=== PATIENT | female | born 1945 | race Caucasian/White ===

== ENCOUNTER → 2017-10-23 | Outpatient (CLI) | payer MEDICARE ==
[2017-10-23 12:16] LABS: BASO % 0.3 %; BASO ABS # 0.03 K/uL (0-0.2); EOS % 0.4 %; EOS ABS # 0.04 K/uL (0-0.5); HEMATOCRIT 42.8 % (37-47); HEMOGLOBIN 13.8 g/dL (12.0-16.0); IG# 0.08 K/uL (0.00-0.02); LYMPH % 18.6 %; LYMPH ABS # 2.12 K/uL (1.2-3.4); MEAN CELL VOLUME 94.5 fL (80-100); MEAN CORPUSCULAR HEMOGLOBIN 30.5 pg (25-34); MEAN CORPUSCULAR HGB CONC 32.2 g/dl (32-36); MEAN PLATELET VOLUME 9.6 fL (7.4-10.4); MONO % 8.6 %; MONO ABS # 0.98 K/uL (0.11-0.59); NEUT % 71.4 %; NEUT ABS # 8.13 K/uL (1.4-6.5); PLATELET COUNT 351 K/uL (130-400); RED CELL DISTRIBUTION WIDTH CV 14.4 % (11.5-14.5); RED CELL DISTRIBUTION WIDTH SD 49.7 fL (36.4-46.3); WHITE BLOOD COUNT 11.38 K/uL (4.8-10.8)
[2017-10-23 15:58] LABS: ALBUMIN 3.4 gm/dl (3.4-5.0); ALT/SGPT 25 U/L (12-78); AST/SGOT 14 U/L (15-37); BLOOD UREA NITROGEN 11 mg/dl (7-18); CALCIUM 8.8 mg/dl (8.5-10.1); CARBON DIOXIDE 28 mmol/L (21-32); CREATININE 0.59 mg/dl (0.60-1.20); GLUCOSE 90 mg/dl (70-99); POTASSIUM 3.2 mmol/L (3.5-5.1); SODIUM 138 mmol/L (136-145); TOTAL PROTEIN 7.4 gm/dl (6.4-8.2)
[2017-10-23 16:09] LABS: ALKALINE PHOSPHATASE 72 U/L (45-117); CHOLESTEROL 218 mg/dl (0-200); LDL CHOLESTEROL CALCULATED 129 mg/dl
== END | disposition home or self-care (01) ==
LOC: C.LABMFLN 09:41
PROVIDERS: ATTEND Family Medicine
DX: I10 Essential (primary) hypertension (principal); E78.5 Hyperlipidemia, unspecified; M81.0 Age-related osteoporosis without current pathological fracture

== ENCOUNTER → 2017-10-30 | Outpatient (CLI) | payer MEDICARE ==
[2017-10-30 18:19] LABS: ALBUMIN 3.5 gm/dl (3.4-5.0); BLOOD UREA NITROGEN 15 mg/dl (7-18); CALCIUM 9.1 mg/dl (8.5-10.1); CARBON DIOXIDE 30 mmol/L (21-32); CREATININE 0.58 mg/dl (0.60-1.20); GLUCOSE 95 mg/dl (70-99); PHOSPHORUS 3.7 mg/dl (2.5-4.9); POTASSIUM 4.1 mmol/L (3.5-5.1); SODIUM 135 mmol/L (136-145)
== END | disposition home or self-care (01) ==
LOC: C.LABMFLN 12:14
PROVIDERS: ATTEND Family Medicine
DX: E87.6 Hypokalemia (principal)

== ENCOUNTER → 2017-12-25 | Outpatient (CLI) | payer MEDICARE | END | disposition home or self-care (01) | LOC: C.LABMFLN 08:32 | PROVIDERS: ATTEND Family Medicine | DX: E78.5 Hyperlipidemia, unspecified (principal) ==

== ENCOUNTER 2019-11-11 05:49 | Inpatient (IN) ==
--- NOTE | 2019-10-23 15:39 | PAT Medication Instructions ---
Medication Instructions Date of Service October 23, 2019 Home Medications Medication Instructions Recorded potassium chloride 10 mEq 10 meq PO BID #180 tab 08/09/19 tablet,extended release gabapentin 100 mg capsule 100 mg PO TID #90 cap 08/26/19 oseltamivir 75 mg capsule 75 mg PO DAILY #10 cap 10/16/19 calcium carbonate 600 mg calcium (1,500 mg) tablet 600 mg PO QAM zoledronic yrbv-jzagwicd-fxgqb 5 mg/100 mL in mannitol 5 %-water intravenous piggybck 5 mg IV YEARLY potassium chloride 10 mEq tablet,extended release 10 meq PO BID gabapentin 100 mg capsule 100 mg PO TID acetaminophen 500 mg PO Q6H PRN celecoxib [Celebrex] 200 mg PO QAM hydrochlorothiazide 12.5 mg PO QAM lansoprazole [Prevacid 24Hr] 15 mg PO DAILY PRN oseltamivir 75 mg capsule 75 mg PO DAILY rosuvastatin 40 mg PO QPM Continue as directed oseltamivir 75 mg capsule 75 mg PO DAILY zoledronic msxc-bhymimcb-viezh 5 mg/100 mL in mannitol 5 %-water intravenous piggybck 5 mg IV YEARLY ASK your surgeon for instructions celecoxib [Celebrex] 200 mg PO QAM DO NOT take the morning of surgery hydrochlorothiazide 12.5 mg PO QAM potassium chloride 10 mEq tablet,extended release 10 meq PO BID calcium carbonate 600 mg calcium (1,500 mg) tablet 600 mg PO QAM Take morning of surgery With a small sip of water, OTHERWISE NOTHING TO EAT OR DRINK AFTER MIDNIGHT: lansoprazole [Prevacid 24Hr] 15 mg PO DAILY PRN (if needed) gabapentin 100 mg capsule 100 mg PO TID acetaminophen 500 mg PO Q6H PRN (okay to take up to 4 hours prior to surgery if needed) Take evening before surgery rosuvastatin 40 mg PO QPM potassium chloride 10 mEq tablet,extended release 10 meq PO BID gabapentin 100 mg capsule 100 mg PO TID acetaminophen 500 mg PO Q6H PRN (if needed) Other Notes If you have any questions please call us at [phone] or [phone] or [phone] or [phone]
--- NOTE | 2019-10-24 11:25 | Anesthesiology Consultation ---
Date of Service October 24, 2019 Assessment & Plan (1) Encounter for pre-operative examination: Chart Review Chart Review: Acceptable Risk for Surgery and Patient seen in Pre Admission Testing Teaching & Discussion Instructed NPO after midnight before surgery, except medications with 15 cc of water. Medication instructions provided according to the PAT guidelines. History Surgery Operation Date: 11/11/19 07:45 Proposed Procedures p L5-S1 Decompression and Fusion, Spinal Cord Monitoring - Butch Lujan DO Height/Weight Height: 5 ft 5 in Weight: 81.6 kg Allergies Allergy/AdvReac Type Severity Reaction Status Date / Time tramadol [From Ultram] Allergy Feel itchy Verified 10/16/19 11:28 ARTIFICAL SWEETNERS Allergy Unknown COLITIS Uncoded 10/16/19 11:42 Medications Home Medications Medication Instructions Recorded Confirmed Last Taken calcium carbonate 600 mg calcium 600 mg PO QAM tab 03/28/19 10/16/19 Unknown (1,500 mg) tablet zoledronic looa-tfrviqbw-delix 5 5 mg IV YEARLY ml 05/06/19 10/16/19 Unknown mg/100 mL in mannitol 5 %-water intravenous piggybck potassium chloride 10 mEq 10 meq PO BID #180 tab 08/09/19 10/16/19 Unknown tablet,extended release gabapentin 100 mg capsule 100 mg PO TID #90 cap 08/26/19 10/16/19 Unknown acetaminophen 500 mg PO Q6H PRN 10/16/19 10/16/19 Unknown celecoxib [Celebrex] 200 mg PO QAM 10/16/19 10/16/19 Unknown hydrochlorothiazide 12.5 mg PO QAM 10/16/19 10/16/19 Unknown lansoprazole [Prevacid 24Hr] 15 mg PO DAILY PRN 10/16/19 10/16/19 Unknown oseltamivir 75 mg capsule 75 mg PO DAILY #10 cap 10/16/19 Unknown rosuvastatin 40 mg PO QPM 10/16/19 10/16/19 Unknown Past Medical History Medical History (Updated 10/25/19 @ 08:55 by Samuel Samaniego) Brachial neuritis RIGHT ARM NUMBNESS Collagenous colitis Has resolved since discovery of allergy to artificial sweeteners GERD (gastroesophageal reflux disease) Hx of basal cell carcinoma MULTIPLE HX: breast cancer LEFT 2004 - HAD LUMPECTOMY, RADIATION AND CHEMO Hyperlipidemia Hypertension Numbness and tingling of left leg LE weakness and numbness 2/2 spinal stenosis Osteoarthritis Ruptured lumbar disc Exercise / Class Metabolic Activity II 4-5 Yardwork/Stairs/Walk up hill (No SOB or CP with 1 FOS but moving slowly and difficult 2/2 leg numbness and weakness) Past Family History Family History Mother Family history of diabetes mellitus Past Surgical History Surgical History History of lumpectomy of left breast Hx of appendectomy Hx of arthroscopy of left knee Hx of arthroscopy of right knee Hx of basal cell carcinoma excision Hx of cervical spine surgery Hx of cholecystectomy Hx of colonoscopy Past Anesthesia History No Hx of Anesthesia Complications and No Family Hx of Anesthesia Complications History of PONV No Hx of PONV and No Hx of Motion Sickness Social History Smoking Status: Former smoker Do You Dip or Chew Tobacco: No Smoking End Date: 1969 Hx Alcohol Use: Yes Alcohol type: wine alcohol intake frequency: a few times a week Hx Substance Use: No Review of Systems Pt denies any recent chest pain, shortness of breath, palpitations, cough, fever or URI. +exposure to influenza via grandson, was put on Tamiflu as preventative measure by PCP Physical Exam Vital Signs BP: 142/83 (pt states this is elevated for her, usualy 130s systolic, PCP is monitoring) P: 80bpm SPO2: 99% RA T: 98.3 F R: 16 ENMT Mouth: no dental restorations, no chipped teeth and no loose teeth Thyromental Distance: > or= 3.5 Finger Breadths (4) Mallampati Class: I Neck normal visual inspection and + limited neck extension (moderately) Respiratory normal respiratory effort Auscultation: lungs clear to auscultation bilaterally (aside from very soft basilar crackles on L side) Cardiovascular Rate/Rhythm: regular rate and regular rhythm Heart Sounds: no murmur Vessels: no carotid bruit Extremities: no edema Testing Laboratory Results 10/24/19 11:44 10/24/19 11:44 PT 11.0 Seconds (9.0-12.0) 10/24/19 11:44 INR 1.0 (0.9-1.1) 10/24/19 11:44 APTT 27.6 Seconds (21.0-31.0) 10/24/19 11:44 Urine Color Yellow 10/24/19 11:44 Urine Appearance Clear (Clear) 10/24/19 11:44 Urine pH 6.5 (4.5-7.5) 10/24/19 11:44 Ur Specific [place] 1.012 (1.000-1.030) 10/24/19 11:44 Urine Protein Negative (Negative) 10/24/19 11:44 Urine Glucose (UA) Negative (Negative) 10/24/19 11:44 Urine Ketones Negative (Negative) 10/24/19 11:44 Urine Nitrite Negative (Negative) 10/24/19 11:44 Ur Leukocyte Esterase Negative (Negative) 10/24/19 11:44 Blood Type O Positive 10/24/19 11:44 Antibody Screen NEGATIVE 10/24/19 11:44 Electrocardiogram Date: 10/24/19 Findings: + NSR @ (81) Chest X-Ray Date: 10/24/19 Findings: + NAD
[2019-10-24 12:04] LABS: Basophils # (auto) 0.03 K/uL (0-0.2); Basophils % (auto) 0.5 %; Eosinophils # (auto) 0.08 K/uL (0-0.5); Eosinophils % (auto) 1.2 %; Hematocrit (blood only) 40.5 % (37-47); Hemoglobin 13.4 g/dL (12.0-16.0); Immature Granulocytes # (auto) 0.01 K/uL (0.00-0.02); Immature Granulocytes % (auto) 0.2 %; Lymphocytes # (auto) 0.89 K/uL (1.2-3.4); Lymphocytes % (auto) 13.7 %; Mean Corpuscular Hemoglobin 30.2 pg (25-34); Mean Corpuscular Hgb Conc 33.1 g/dL (32-36); Mean Corpuscular Volume 91.2 fL (80-100); Mean Platelet Volume 9.8 fL (7.4-10.4); Monocytes # (auto) 0.95 K/uL (0.11-0.59); Monocytes % (auto) 14.6 %; Neutrophils # (auto) 4.55 K/uL (1.4-6.5); Neutrophils % (auto) 69.8 %; Platelet Count 312 K/uL (130-400); RDW Coefficient of Variation 13.7 % (11.5-14.5); RDW Standard Deviation 46.2 fL (36.4-46.3); Red Blood Count 4.44 M/uL (4.2-5.4); White Blood Count 6.51 K/uL (4.8-10.8)
--- NOTE | 2019-10-24 12:05 | XRay Report ---
XR chest Pre-admission PA/Lat CLINICAL HISTORY: 74 years-old Female presenting with preoperative assessment. TECHNIQUE: PA and lateral views of the chest were obtained. COMPARISON: None. FINDINGS: Left axillary surgical clips noted. Cardiomediastinal silhouette normal. Lungs and pleural spaces manda ar. Anterior plate and screw fixation in the cervical spine. Cholecystectomy clips noted. IMPRESSION: 1. No acute cardiopulmonary disease. ACT 112: Negative or not required by law. Electronically signed by: Tal Raymundo M.D. 10/24/2019 12:03 PM
[2019-10-24 12:18] LABS: Appearance Urine Clear (Clear); Bilirubin Urine Negative (Negative); Blood Urine Negative (Negative); Color Urine Yellow; Glucose Urine UA Negative (Negative); Ketones Urine Negative (Negative); Leukocyte Esterase Urine Negative (Negative); Nitrite Urine Negative (Negative); Protein Urine Negative (Negative); Specific Gravity Urine 1.012 (1.000-1.030); Urobilinogen Urine Negative (Negative); pH Urine 6.5 (4.5-7.5)
[2019-10-24 12:22] LABS: Partial Thromboplastin Time 27.6 Seconds (21.0-31.0)
[2019-10-24 12:45] LABS: BUN Creatinine Ratio 14.4 (10-20); Calcium 9.5 mg/dl (8.5-10.1); Creatinine Clr Calc Pharmacy 89.4 ml/min; Est GFR (African American) 105.5; Est GFR (Non-African American) 91.1
--- NOTE | 2019-10-24 17:03 | Electrocardiogram Report ---
Test Reason : Blood Pressure : / mmHG Vent. Rate : 081 BPM Atrial Rate : 081 BPM P-R Int : 162 ms QRS Dur : 090 ms QT Int : 384 ms P-R-T Axes : 055 022 041 degrees QTc Int : 446 ms Normal sinus rhythm Normal ECG No previous ECGs available Confirmed by Alec Rausch ([id number]) on 10/24/2019 5:03:17 PM Referred By: Butch Lujan Confirmed By:Alec Rausch
[2019-11-11] MEDS ORDERED: GABAPENTIN 300 MG CAP PO SCH (06:00)
[2019-11-11] MEDS ORDERED: ACETAMINOPHEN 500 MG TAB PO SCH (06:00)
[2019-11-11] MEDS ORDERED: CeleBREX 200 MG CAP PO SCH (06:00)
[2019-11-11] MEDS ORDERED: CEFAZOLIN 2000MG 2,000 MG/15 ML SYR IV SCH (06:00)
[2019-11-11] MEDS ORDERED: LR 15ML/HR IV SCH (06:00)
[2019-11-11] MEDS ORDERED: HYDROmorphone INJ 2 MG/ML SYR/VIAL ONE (06:56)
[2019-11-11] MEDS ORDERED: MIDAZOLAM HCL 1 MG/ML 2ML VIAL ONE (06:56)
[2019-11-11] MEDS ORDERED: fentaNYL citrate 100 MCG/2 ML VIAL ONE (07:07)
[2019-11-11] MEDS ORDERED: BACITRACIN INJ 50,000 UNIT VIAL ONE (07:12)
[2019-11-11] MEDS ORDERED: BUPIVACAINE/EPINEPHRINE 0.5% MPF 1:200,000 10 ML VIAL ONE (07:12)
[2019-11-11] MEDS ORDERED: ONDANSETRON INJ 2 MG/ML 2 ML VIAL IV PRN (07:18)
[2019-11-11] MEDS ORDERED: ATROPINE SULFATE 0.1 MG/ML 10ML SYR IV PRN (07:18)
[2019-11-11] MEDS ORDERED: HYDROmorphone INJ 1 MG/ML SYRINGE IV PRN ×2 (07:18→10:48)
[2019-11-11] MEDS ORDERED: ePHEDrine sulfate 50 MG/ML AMP IV PRN (07:18)
--- NOTE | 2019-11-11 07:38 | History & Physical Bridge Note ---
Date of Service November 11, 2019 History & Physical Bridge Note I have examined the patient, reviewed the History & Physical and in the interval since the performance of the History & Physical I have noted the following changes of clinical significance: no changes noted
--- NOTE | 2019-11-11 07:39 | History & Physical Report ---
Date of Service November 11, 2019 Assessment & Plan (1) Neurogenic claudication due to lumbar spinal stenosis: L5-S1 decompression fusion Present on Admission?: Yes History of Present Illness Chief Complaint: Back and bilateral leg pain and weakness Primary Care Provider: Shobha Martin MD This is a 74-year-old female that has worsening back pain leg pain and leg weakness that has been progressive in nature and is here for urgent decompression fusion. Allergies Allergy/AdvReac Type Severity Reaction Status Date / Time tramadol [From [facility]] Allergy Feel itchy Verified 10/28/19 12:33 [employer] SWE[employer]NERS Allergy Unknown COLITIS Uncoded 10/28/19 12:33 Home Medications Home Medications Medication Instructions Recorded Confirmed Type calcium carbonate 600 mg calcium 600 mg PO QAM tab 03/28/19 11/11/19 History (1,500 mg) tablet zoledronic phwx-vfpvqhaz-vlmox 5 5 mg IV YEARLY ml 05/06/19 11/11/19 History mg/100 mL in mannitol 5 %-water intravenous piggybck potassium chloride 10 mEq 10 meq PO BID #180 tab 08/09/19 11/11/19 Rx tablet,extended release acetaminophen 500 mg PO Q6H PRN 10/16/19 11/11/19 History hydrochlorothiazide 12.5 mg PO QAM 10/16/19 11/11/19 History lansoprazole [Prevacid 24Hr] 15 mg PO DAILY PRN 10/16/19 11/11/19 History rosuvastatin 40 mg PO QPM 10/16/19 11/11/19 History Past Med/Surg History Family History Mother Family history of diabetes mellitus Social History Preferred Language: Swedish Communication Ability: Effective Beliefs That Will Affect Care: None Current Living Situation: Spouse Feels Safe at Home: Yes Safety Concerns: Feels Safe At This Time Smoking Status: Former smoker Do You Dip or Chew Tobacco: No ; Smoking End Date: 1969 ; Second Hand Exposure: No ; Hx Alcohol Use: Yes Alcohol type: wine Hx Substance Use: No Physical Exam Physical Exam: Patient is alert and oriented neurologically intact. Results & Data Vital Signs (Past 12 Hours) Vital Signs Temp Pulse Resp BP Pulse Ox 11/11/19 06:34 36.8 C 99 H 18 179/87 H 100
[2019-11-11] MEDS ORDERED: LIDOCAINE HCL 2% 2 ML VIAL/AMP(20MG/ML) INFIL ONE (08:15)
[2019-11-11] MEDS ORDERED: NEOSTIGMINE METHYLSULFATE 5 MG/5 ML SYR ONE (08:15)
[2019-11-11] MEDS ORDERED: GLYCOPYRROLATE 0.2 MG/ML VIAL ONE (08:15)
[2019-11-11] MEDS ORDERED: PROPOFOL IV EMULSION 10 MG/ML 20 ML VIAL IV ONE (08:15)
[2019-11-11] MEDS ORDERED: DEXAMETHASONE SOD INJ 4 MG/ML VIAL ONE (08:15)
[2019-11-11] MEDS ORDERED: ROCURONIUM BROMIDE 10 MG/ML 5 ML VIAL ONE (08:15)
[2019-11-11] MEDS ORDERED: ONDANSETRON INJ 2 MG/ML 2 ML VIAL ONE (08:15)
[2019-11-11] MEDS ORDERED: LARYING-O-JET KIT (LTA) ONE (08:39)
[2019-11-11] MEDS ORDERED: FLOSEAL HEMOSTATIC MATRIX 10ML TOP ONE (08:46)
--- NOTE | 2019-11-11 09:18 | Operative Report ---
Post Operative Report Pre & Post Diagnosis Operation Date: 11/11/19 07:45 Pre-Op Diagnosis: Lumbar spinal stenosis with neurogenic claudication. Spondylolisthesis L5-S1 Post-Op Diagnosis: Same I identified the patient and participated in the time-out.: Yes Procedure Operation Date: 11/11/19 07:45 Actual Procedures #1 lumbar decompression with bilateral medial facetectomies and foraminotomies L4-5 and L5-S1 per #2 posterior spinal fusion L5-S1. #3 placement posterior instrumentation from July #4 interbody fusion L4 S1. #5 placed a peek cage 10 x 22 mm of 5 number #6 placement locally harvested morselized autograft in the posterior lateral gutters per #7 placement infuse collagen sponge, master graft in the posterior gutters and ostial amp interbody space. Surgeon Butch Lujan DO Clipper Machine Operator Eden Sales Estimated Blood Loss 50 Findings Consistent with Post-Op Diagnosis Specimens None Indications This is a 74--year-old female who presents with marked decline in status with bilateral leg pain and weakness and inability to ambulate subsequently elected to undergo urgent decompression fusion. Description of Procedure Patient was met with preop the case discussed all questions were addressed with the patient was taken back to the operative suite underwent an patient placed in the prone position Ra table on top Hermilo frame. This point the lumbar spine was prepped and draped sterile fashion. Sharp dissection with the assistance of Bovie cautery was performed down to and exposing the lamina and transverse processes of L5 and sacral ala bilaterally. Obvious bilateral pars defect identified. Complete laminectomy of L5 partial laminectomy performed was then performed including bilateral medial facetectomies and foraminotomies addressing severe spinal stenosis. Pedicle screws were then placed in L5 and S1 levels bilaterally with assistance of fluoroscopy and appropriate sized willian placed. By way of a transforaminal approach on the left complete discectomy of L5-S1 was performed endplates curetted to subcortical being bone and a 10 x 22 mm peek cage filled with osteo-bone graft tapped in position. The rods were then compressed locked in final position bilaterally. The transverse processes of L5 and sacral ala burred to subcortical bleeding bone. Infuse collagen sponge master graft local autograft placed in the posterior lateral gutters. 15 round NELSON drain inserted. The incision was then closed with 1 Vicryl in the fascia 2-0 Vicryl subcutaneously and 4 Monocryl for final skin closure. Steri- Strip sterile dressings placed. Patient awakened taken to PACU stable condition. Please note spinal cord monitoring was utilized that the procedure no changes noted. Lastly Eden Sales was present at the entire procedure involved the patient positioning complex portions of the surgery and final skin closure. I attest to the content of the Intraoperative Record and any orders documented therein. Any exceptions are noted below.
--- NOTE | 2019-11-11 09:26 | Fluoroscopy Report ---
FL lumbar spine 2-3V CLINICAL HISTORY: L5-S1 DECOMP/FUSION COMPARISON STUDY: None. FLUOROSCOPY TIME: 15 seconds. FLUOROSCOPIC IMAGES: 2. FINDINGS: These images demonstrate an L5-S1 discectomies and interbody spacer placement. Posterior de compression is noted. There are bilateral pedicle screws at the L5 and S1 levels. The hardware is int act. There are no unexpected radiopaque foreign bodies. IMPRESSION: Fluoroscopy provided for L5-S1 discectomy, decompression and posterior fusion. ACT 112: Negative or not required by law. Electronically signed by: Manjit Verduzco M.D. 11/11/2019 9:25 AM
[2019-11-11] MEDS: fentaNYL citrate 100 MCG/2 ML VIAL IV PRN ×4 (09:38→10:00)
--- NOTE | 2019-11-11 10:41 | Anesthesiology Progress Note ---
Date of Service November 11, 2019 Anesthesia Post Procedure Vital Signs Vital Signs: Temp Pulse Pulse Resp BP Pulse Ox 11/11/19 10:20 98.6 F 64 16 123/68 98 11/11/19 10:10 98.6 F 72 22 128/63 100 11/11/19 10:00 68 11 L 127/61 100 11/11/19 09:50 72 18 135/65 100 11/11/19 09:40 97.5 F L 90 26 H 145/90 H 100 11/11/19 09:31 97.5 F L 92 H 16 192/70 H 100 11/11/19 06:34 98.2 F 99 H 18 179/87 H 100 Pain Intensity Lower Back: Pain Intensity: 3 Transfer of Care Handoff Completed per policy Notes Mental Status: alert / awake / arousable and participated in evaluation Patient Amnestic to Procedure: Yes Nausea / Vomiting: adequately controlled Pain: adequately controlled Airway Patency, RR, SpO2: stable & adequate BP & HR: stable & adequate Hydration State: stable & adequate Anesthetic Complications: no major complications apparent and Pt Satisfied with anesthetic care
[2019-11-11] MEDS ORDERED: ZOLEDRONIC ACID 5 MG/100 ML VIAL IV SCH (10:48)
[2019-11-11] MEDS ORDERED: NALOXONE HCL 0.4 MG/1 ML VIAL/CARP IV PRN (10:48)
[2019-11-11] MEDS ORDERED: FAMOTIDINE 20 MG TAB PO PRN (10:48)
[2019-11-11] MEDS ORDERED: LORazepam 0.5 MG TAB PO PRN (10:48)
[2019-11-11] MEDS ORDERED: SOD PHOSPHATE/SOD BIPHOSPHATE ENEMA 132 ML BTL PR PRN (10:48)
[2019-11-11] MEDS ORDERED: METOCLOPRAMIDE HCL INJ 5 MG/ML 2 ML VIAL IV PRN (10:48)
[2019-11-11] MEDS ORDERED: HYDROmorphone INJ 0.5 MG/0.5 ML SYR IV PRN (10:48)
[2019-11-11] MEDS ORDERED: MAGNESIUM HYDROXIDE SUSP 30 ML UDC PO PRN (10:48)
[2019-11-11] MEDS ORDERED: PROMETHAZINE HCL 12.5 MG in SODIUM CHLORIDE 0.9% 50 ML IV PRN (10:48)
[2019-11-11] MEDS ORDERED: DO NOT ADMINISTER PNEUMOCOCCAL VACCINE PRN (10:48)
[2019-11-11] MEDS ORDERED: ALUMINUM/MAGNESIUM SUSP 30 ML UDC PO PRN (10:48)
[2019-11-11] MEDS ORDERED: DO NOT ADMINISTER FLU VACCINE PRN (10:48)
[2019-11-11] MEDS ORDERED: ONDANSETRON 4 MG OD TAB PO PRN (10:48)
[2019-11-11] MEDS ORDERED: LORazepam 0.5 MG/1 ML VIAL IV PRN (10:48)
[2019-11-11] MEDS ORDERED: bisacodyL 10 MG SUPP PR PRN (10:48)
[2019-11-11] MEDS ORDERED: PANTOprazole 40 MG TAB PO PRN (10:57)
[2019-11-11] MEDS: OXYCODONE HCL IR 5 MG TAB (IMMEDIATE RELEASE) PO PRN ×3 (12:18→21:43)
[2019-11-11] MEDS: SODIUM CHLORIDE 0.9% 1000ML 1,000 ML IV SCH ×2 (12:36→22:20)
[2019-11-11] MEDS: ACETAMINOPHEN 1,000 MG/100 ML VIAL IV PRN ×2 (15:47→23:44)
[2019-11-11] MEDS: CEFAZOLIN 2000MG 2,000 MG/15 ML SYR IV SCH ×2 (18:21→23:44)
[2019-11-11] MEDS: ONDANSETRON INJ 2 MG/ML 2 ML VIAL IV PRN (18:33)
--- NOTE | 2019-11-11 19:18 | Hospitalist Consultation ---
Date of Consultation November 11, 2019 Assessment & Plan (1) Neurogenic claudication due to lumbar spinal stenosis: s/p L5-S1 decompression and fusion with Dr. Lujan on 11/10 Diet, DVT proph as per ortho Pre-op Hb 12.0 (2) GERD (gastroesophageal reflux disease): PRN as at home (3) Hyperlipidemia: continue home meds (4) Hypertension: continue home meds (5) DVT prophylaxis: As per ortho History of Present Illness Attending Physician: Butch Lujan DO History of Present Illness 74 y/o F who was admitted on 11/10 s/p L5-S1 decompression and fusion with Dr. Lujan. Pt is doing well post-op. Tolerating PO without issue. She did have a bit of nausea with initial PO, but was able to eat and no emesis. Pt denies fever, SOB, chest pain, abd pain, n/v/c/d, LE pain and swelling. She has some p ain related to her incision site, but it is manageable. Allergies Allergy/AdvReac Type Severity Reaction Status Date / Time tramadol [From Ultram] Allergy Feel itchy Verified 10/28/19 12:33 [employer] SWEETNERS Allergy Unknown COLITIS Uncoded 10/28/19 12:33 Home Medications Home Medications Medication Instructions Recorded Confirmed Type calcium carbonate 600 mg calcium 600 mg PO QAM tab 03/28/19 11/11/19 History (1,500 mg) tablet zoledronic rtjk-osigtbmq-txpvz 5 5 mg IV YEARLY ml 05/06/19 11/11/19 History mg/100 mL in mannitol 5 %-water intravenous piggybck potassium chloride 10 mEq 10 meq PO BID #180 tab 08/09/19 11/11/19 Rx tablet,extended release acetaminophen 500 mg PO Q6H PRN 10/16/19 11/11/19 History hydrochlorothiazide 12.5 mg PO QAM 10/16/19 11/11/19 History lansoprazole [Prevacid 24Hr] 15 mg PO DAILY PRN 10/16/19 11/11/19 History rosuvastatin 40 mg PO QPM 10/16/19 11/11/19 History Patient History Medical History Brachial neuritis RIGHT ARM NUMBNESS Collagenous colitis Has resolved since discovery of allergy to artificial sweeteners GERD (gastroesophageal reflux disease) Hx of basal cell carcinoma MULTIPLE HX: breast cancer LEFT 2004 - HAD LUMPECTOMY, RADIATION AND CHEMO Hyperlipidemia Hypertension Left lumbar radiculopathy Numbness and tingling of left leg LE weakness and numbness 2/2 spinal stenosis Osteoarthritis Osteoporosis Ruptured lumbar disc Surgical History History of lumpectomy of left breast Hx of appendectomy Hx of arthroscopy of left knee Hx of arthroscopy of right knee Hx of basal cell carcinoma excision Hx of cervical spine surgery Hx of cholecystectomy Hx of colonoscopy S/P tonsillectomy Family History Mother Family history of diabetes mellitus Social History (Updated 11/11/19 @ 19:16 by Dianna Alvarez DO) Preferred Language: Indonesian Communication Ability: Effective Beliefs That Will Affect Care: None Current Living Situation: Spouse Feels Safe at Home: Yes Safety Concerns: Feels Safe At This Time Smoking Status: Former smoker Do You Dip or Chew Tobacco: No ; Smoking End Date: 1969 ; Second Hand Exposure: No ; Hx Alcohol Use: Yes Alcohol type: wine Alcohol Intake Frequency Comment: 5oz with dinner most nights Hx Substance Use: No Review of Systems Review of Systems: Pertinent positives and negatives reviewed in HPI--all others negative Physical Exam Constitutional: WD/WN, vitals as above Eyes: normal visual osborne by confrontation and + anicteric sclerae Neck: normal visual inspection and trachea midline Respiratory: normal respiratory effort, lungs clear to auscultation Cardiovascular: Rate/Rhythm: regular rate and regular rhythm Gastrointestinal (Abdomen): Inspection/Auscultation: abdomen not distended Percussion/Palpation: abdomen soft; abdomen nontender Musculoskeletal: Head/Neck/Chest: normocephalic and head atraumatic negative for edema, peripheral pulses intact Skin: no rashes, warm and dry Neurologic: awake; not confused Speech / Cognition: normal speech Psychiatric: A+Ox3, euthymic affect Results & Data Results & Data ([facility]) Vital Signs (Past 12 Hours) Vital Signs Temp Pulse Pulse Pulse Resp BP Pulse Ox 11/11/19 16:15 36.6 C 77 18 117/70 11/11/19 13:55 36.5 C 89 16 128/73 97 11/11/19 12:42 87 87 18 127/73 98 11/11/19 11:35 90 18 125/74 98 11/11/19 11:06 76 18 129/71 99 11/11/19 10:35 36.8 C 75 16 124/71 95 11/11/19 10:20 37.0 C 64 16 123/68 98 11/11/19 10:10 37.0 C 72 22 128/63 100 11/11/19 10:00 68 11 L 127/61 100 11/11/19 09:50 72 18 135/65 100 11/11/19 09:40 36.4 C L 90 26 H 145/90 H 100 11/11/19 09:31 36.4 C L 92 H 16 192/70 H 100 Diagnostic Findings CXR: neg for acute ECG Rhythm: normal sinus PG Care Time/CCT Total # of Minutes Spent Total Time Spent with Patient: Total time spent is greater than 50% in coordination of care (as documented) at patient's floor/unit and/or counseling patient: Coding Level of Care Code 29461 Inpt Consult Level 3 Diagnoses Neurogenic claudication due to lumbar spinal stenosis M48.062 GERD (gastroesophageal reflux disease) K21.9 Hyperlipidemia E78.5 Hypertension I10 DVT prophylaxis Z29.9
[2019-11-11] MEDS: DOCUSATE SODIUM/SENNA 50/8.6MG TAB PO SCH (20:19)
[2019-11-11] MEDS: ROSUVASTATIN CALCIUM 20 MG TAB PO SCH (20:20)
[2019-11-11] MEDS: POTASSIUM CHLORIDE 10 MEQ TABCR PO SCH (20:20)
[2019-11-12 06:00] LABS: Hematocrit (blood only) 35.3 % (37-47); Hemoglobin 11.5 g/dL (12.0-16.0); Immature Granulocytes # (auto) 0.04 K/uL (0.00-0.02); Immature Granulocytes % (auto) 0.3 %; Lymphocytes # (auto) 0.71 K/uL (1.2-3.4); Lymphocytes % (auto) 5.2 %; Mean Corpuscular Hemoglobin 29.8 pg (25-34); Mean Corpuscular Hgb Conc 32.6 g/dL (32-36); Mean Corpuscular Volume 91.5 fL (80-100); Mean Platelet Volume 9.8 fL (7.4-10.4); Monocytes # (auto) 0.67 K/uL (0.11-0.59); Monocytes % (auto) 4.9 %; Neutrophils # (auto) 12.36 K/uL (1.4-6.5); Neutrophils % (auto) 89.6 %; Platelet Count 269 K/uL (130-400); RDW Coefficient of Variation 13.9 % (11.5-14.5); RDW Standard Deviation 46.5 fL (36.4-46.3); Red Blood Count 3.86 M/uL (4.2-5.4); White Blood Count 13.78 K/uL (4.8-10.8)
[2019-11-12] MEDS: POLYETHYLENE (MIRALAX) 17 GM PACK PO SCH ×3 (06:21→18:28)
[2019-11-12 06:34] LABS: BUN Creatinine Ratio 16.6 (10-20); Calcium 8.2 mg/dl (8.5-10.1); Creatinine Clr Calc Pharmacy 111.2 ml/min; Est GFR (African American) 113.6
[2019-11-12] MEDS: ACETAMINOPHEN 500 MG TAB PO PRN ×2 (07:53→20:45)
[2019-11-12] MEDS: CALCIUM CARBONATE 1250MG TAB PO SCH (07:54)
[2019-11-12] MEDS: POTASSIUM CHLORIDE 10 MEQ TABCR PO SCH (07:54)
[2019-11-12] MEDS ORDERED: hydroCHLOROthiazide 25 MG TAB PO SCH (09:00)
--- NOTE | 2019-11-12 10:13 | Orthopedic Progress Note ---
Date of Service November 12, 2019 Assessment & Plan (1) Neurogenic claudication due to lumbar spinal stenosis: This time we will continue physical therapy monitor her NELSON output advance her bowel regiment hopefully discharge home in the next day or so. Present on Admission?: Yes Admission and Anticipated Discharge Date Admission Date: November 11, 2019 Subjective Back pain controlled leg symptoms markedly improved. Physical Exam Physical Exam: Patient has good strength testing appears comfortable. She notes some residual numbness to the left lower extremity. Results & Data ([facility]) Vital Signs (Past 12 Hours) Vital Signs Temp Pulse Resp BP Pulse Ox 11/12/19 07:20 36.9 C 74 18 110/69 98 11/12/19 03:11 36.6 C 80 18 120/67 99 11/11/19 23:25 37 C 65 16 115/68 96
[2019-11-12] MEDS ORDERED: COUGH DROP (SUGAR FREE) LOZ 24 LOZ/1 BOX BUCCAL ONE (11:21)
[2019-11-12] MEDS: OXYCODONE HCL IR 5 MG TAB (IMMEDIATE RELEASE) PO PRN ×2 (13:29→23:28)
--- NOTE | 2019-11-12 14:15 | Hospitalist Progress Note ---
Date of Service November 12, 2019 Assessment & Plan (1) Neurogenic claudication due to lumbar spinal stenosis: s/p L5-S1 decompression and fusion with Dr. Lujan on 11/10 Diet, DVT proph as per ortho. Post op labs relatively unremarkable. Hgb 13.4 -> 11.5. (2) GERD (gastroesophageal reflux disease): PRN as at home (3) Hypertension: Given low normal BP post operatively recommend holding HCTZ and potassium supplementation at this time during her hospitalization. Can be restarted on discharge or earlier if sBP consistently > 160. (4) DVT prophylaxis: As per ortho Admission and Anticipated Discharge Date Admission Date: November 11, 2019 Thank you for the consult. Management for blood pressure as above advised but otherwise no ongoing medical needs identified. We will sign off at this time. Please call if you wish us to see her again. Subjective Patient reports doing well post operatively. Ambulating around the [place]. With regards to HCTZ use she reports this was started around 1 year ago due to her BP around 130/80, potassium was only added when she was on this medication. She denies any orthostatic symptoms, pre or post operatively. Review of Systems Review of Systems: All systems reviewed & are unremarkable except as noted in HPI & below Physical Exam Constitutional: WD/WN, vitals as above Eyes: + anicteric sclerae; normal pupil size ENMT: external ear and nose normal, oropharynx normal Neck: normal visual inspection and trachea midline Respiratory: normal respiratory effort, lungs clear to auscultation no respiratory distress Cardiovascular: Rate/Rhythm: regular rate and regular rhythm Heart Sounds: no murmur Extremities: normal capillary refill; no pedal edema Gastrointestinal (Abdomen): Inspection/Auscultation: abdomen not distended Percussion/Palpation: abdomen soft; abdomen nontender Skin: no rashes, warm and dry Neurologic: awake; not confused Speech / Cognition: normal speech Psychiatric: A+Ox3, euthymic affect Results & Data Results & Data ([facility]) Vital Signs (Past 12 Hours) Vital Signs Temp Pulse Resp BP Pulse Ox 11/12/19 07:20 36.9 C 74 18 110/69 98 11/12/19 03:11 36.6 C 80 18 120/67 99 PG Care Time/CCT Total # of Minutes Spent Total Time Spent with Patient: Total time spent is greater than 50% in coordination of care (as documented) at patient's floor/unit and/or counseling patient: Coding Level of Care Code 43266 Subseq Hosp Care Lvl 2 Diagnoses Neurogenic claudication due to lumbar spinal stenosis M48.062 GERD (gastroesophageal reflux disease) K21.9 Esophagitis presence: without esophagitis Hypertension I10 Hypertension type: essential hypertension DVT prophylaxis Z29.9 (1) GERD (gastroesophageal reflux disease) Esophagitis presence: without esophagitis Qualified Code(s): K21.9 - Gastro- esophageal reflux disease without esophagitis (2) Hypertension Hypertension type: essential hypertension Qualified Code(s): I10 - Essential (primary) hypertension
[2019-11-12] MEDS: ROSUVASTATIN CALCIUM 20 MG TAB PO SCH (20:42)
[2019-11-12] MEDS: DOCUSATE SODIUM/SENNA 50/8.6MG TAB PO SCH (20:43)
[2019-11-12] MEDS: ONDANSETRON INJ 2 MG/ML 2 ML VIAL IV PRN (23:28)
[2019-11-13] MEDS: CALCIUM CARBONATE 1250MG TAB PO SCH (08:48)
[2019-11-13] MEDS ORDERED: hydroCHLOROthiazide 25 MG TAB PO SCH (09:00)
--- NOTE | 2019-11-13 11:31 | Discharge Summary ---
Date of Service November 13, 2019 Admission HPI Per Admitting Provider This is a 74-year-old female that has worsening back pain leg pain and leg weakness that has been progressive in nature and is here for urgent decompression fusion. Principal Diagnosis Number spinal stenosis with neurogenic claudication Discharge Data Allergies Allergy/AdvReac Type Severity Reaction Status Date / Time aspartame Allergy Unknown Gastrointestinal Verified 11/13/19 07:58 Upset saccharin Allergy Unknown Gastrointestinal Verified 11/13/19 07:58 Upset sucralose Allergy Unknown Gastrointestinal Verified 11/13/19 07:58 Upset tramadol [From Ultram] Allergy Feel itchy Verified 10/28/19 12:33 ARTIFICAL SWEETNERS Allergy Unknown COLITIS Uncoded 10/28/19 12:33 Consultations 11/11/19 10:48 Consult Case Management - Discharge Planning Routine Consult Hospitalist Routine Procedures Performed Operation Date: 11/11/19 07:45 Actual Procedures p L5-S1 Decompression and Fusion with Interbody, Spinal Cord Monitoring(Not Applicable) - Butch Lujan DO Ordered Studies 11/11/19 07:45 FL fluoroscopy <1hr Routine FL lumbar spine 2-3V Routine Hospital Course (1) Neurogenic claudication due to lumbar spinal stenosis: Patient underwent lumbar decompression fusion tolerated this well was taken to the orthopedic floor possibly. Postop day 1 her leg symptoms and weakness were improving. She tolerated physical therapy. On postop day #2 her NELSON drain had decreased probably. Bowels working well. Excellent strength testing. Subsequently discharged home. Discharge orders instructions from the chart for further view. Total Time Total Time Spent Total Time Spent (In Minutes): 20 minutes Discharge Plan Discharge Items Patient Disposition: Home - Self-Care Reason For Visit: LUMBAR SPINAL STENOSIS WO NEUROGENIC CLAUDICATION Discharge Diagnosis: Lumbar spinal stenosis with radiculopathy Activity: As commented below Non-emergency contact: Primary Care Provider Call non-emergency contact if: you have any medication questions Follow-up/Referrals: Shobha Martin MD [Primary Care Provider] - Diet: Regular Addtl Attending Provider Instructions: ACTIVITY RECOMMENDATIONS: SELF CARE INSTRUCTIONS AFTER THORACIC/LUMBAR FUSIONS 1. You may walk to your tolerance. It is good exercise for your legs and back. Expect some back and intermittent leg aches and pains. 2. You may perform "counter-top" level activities (make a sandwich, meera with a project, etc.). 3. No bending or lifting of more than 10 pounds or back twisting of any nature (roll like a log when turning in bed). 4. You may ride in a car for 20-30 minutes at a time. No driving until after your first visit with your doctor. 5. Frequent changes of position and restricting sitting to 30 minutes at a time will help limit the amount of back spasms and stiffness you may experience. 6. You may discontinue the use of ambulatory aids (cane, crutches, etc.) once your strength and confidence allow. 7. You may carpet finishing supervisor the shower and let water strike your incision when you arrive home at least once daily. Do not take a tub bath, sit in a hot tub or go into a swimming pool until after your first recheck in the office. SPECIAL CARE INSTRUCTIONS: VERY IMPORTANT TO READ AND REVIEW A. Your surgical incision has been closed with a cosmetic suture under the skin that will dissolve in about 6 weeks. In 14 days, you can use a pair of clean scissors and cut the suture that is left outside of the skin at the ends of your incision. 1. The small skin tapes can be removed 7 days after surgery if they have not fallen off by that point. 2. You may keep the wound open to air as much as possible to promote healing after post-op day number 5 unless told otherwise by your doctor. 3. If you think the wound looks like it is becoming infected (redness or worsening drainage) and/or you are experiencing fever, chill or worsening back pain and muscle spasms, contact the office so that we may evaluate you as soon as possible. B. Complications are uncommon, but please contact us if you have any signs or symptoms of: 1. wound infection (fever higher than 102.5 degrees F, redness, separation of wound, drainage, or increasing pain from the incision) 2. blood clots in legs (pain, swelling, redness and warmth in legs) 3. urinary tract infection (fever higher than 102.5 degrees F, burning upon urination or increased frequency of urination) 4. nerve problems (inability to walk on your toes or heels, numbness, loss of bowel or bladder control) 5. any other symptoms that concern you C. Please call the office at if you have any concerns or questions about your operation or recovery. D. No smoking! Smoking drastically decreases the chance of a solid fusion. E. Do not take any anti-inflammatory medications (Indocin, Advil, Motrin, Aspirin, Naprosyn, etc.) as these may inhibit the chance of a solid fusion. Tylenol is okay to take for pain. MANAGING PAIN AFTER SPINAL SURGERY 1. Narcotic medication is intended for short-term use and will be provided for surgical pain. Surgical pain usually lasts for a period of 4-6 weeks. Narcotic medication includes Percocet, Vicodin, Darvocet, Tylenol #3 or Lortab. 2. Longer-term pain is more appropriately treated with non-narcotic medication such as Tylenol ES. 3. Muscle spasm is not appropriately treated with narcotics. Muscle relaxers such as Soma, Flexeril or Skelaxin can be used along with Tylenol ES. 4. Remember that we all live with some "aches and pains". This is not unusual or uncommon after an injury or as we get older. a. Back pain is expected and may include muscle spasms for 4 to 6 weeks after surgery. The pain should gradually improve. If the pain worsens for no apparent reason, please contact the office. b. Intermittent leg pain may also be experienced and should not be concerned about unless it worsens for no apparent reason. If so, please contact the office. 5. We will provide appropriate medication within the normal guidelines of their prescribed use. We will also be very cautious and aware of potential abuse and extended duration of patients' medication needs. a. Pain medications are for your comfort and to assist with sleep and rest so that the tissue can heal. They are not provided in order to return to normal activity and should not be used through the day. To do so or worsening pain at night can result from ongoing tissue damage and development of tolerance to the prescribed medicine. 6. Please allow 2-3 days to process refills. Prescriptions will not be mailed but must be picked up at the office. FOLLOW UP VISIT: Keep your scheduled follow-up appointment. Any questions, please call the office at . Pending Studies at Discharge: No Stand-Alone Forms: [facility], [facility], Opioid Pain [facility], Smoking Cessation Medications and PA Order Prescriptions: New oxycodone 5 mg tablet 5 mg PO Q6H PRN (Reason: pain, severe) Qty: 20 RF: 0 Continued potassium chloride 10 mEq tablet extended release 10 meq PO BID Qty: 180 RF: 1 calcium carbonate [Calcium 600] 600 mg calcium (1,500 mg) tablet 600 mg PO QAM RF: 0 zoledronic didq-jbnvdhlx-drbwl 5 mg/100 mL piggyback 5 mg IV YEARLY RF: 0 rosuvastatin 40 mg tablet 40 mg PO QPM RF: 0 hydrochlorothiazide 12.5 mg tablet 12.5 mg PO QAM RF: 0 acetaminophen 500 mg Tablet 500 mg PO Q6H PRN (Reason: Pain) RF: 0 lansoprazole [Prevacid 24Hr] 15 mg Capsule,Delayed Release(Dr/Ec) 15 mg PO DAILY PRN (Reason: GERD) RF: 0 Discharge Orders: Discharge Order (Routine); Ordered 11/13/19 Ordered By: Butch Adams/Other Patient Handouts: 2019-nCoV Admission Data Admit Date/Time: 11/11/19 09:43 Attending Provider: Butch Lujan Admit Provider: Butch Lujan Primary Care Provider: Shobha Martin Other Providers: Abraham Ocampo Other Interventions: Discharge Summary Assessment (RN) Last Done: 11/13/19 10:06
== END 2019-11-13 12:18 | disposition home or self-care (01) | DRG 455 ==
LOC: ASU 05:49 → 3E 09:43